=== PATIENT | male | born 1950 | race Caucasian/White ===

== ENCOUNTER 2018-11-02 08:03 | Inpatient (IN) | payer MEDICARE ==
[~2018-11-02] VITALS: Ht 177.8 cm; Wt 47.4 kg
[~2018-11-02 08:03] MED LIST: ACET325; ACET325UDC PO; ALBU3IS INH; ALBU90OI6 INH; ALPR.5 PO; AMLO5 PO; ASCO500 PO; AZIT500 PO; Acidophilus La100 GM PO; BUDE6HFA INH; CALCA500CH PO; CLON.5 PO; Docu Liqui50 MG/5 ML PO; FERR325 PO; FLUC200 PO; IBUP400 PO; IPRAIS NEB; LEVSOD100 PO; LORA1 PO; Lorazepam2 MG/1 ML IV; MELO7.5 PO; NAC600 MG PO; NYST100SU MT; OMEP20ER PO; OXYC5 PO; PRED10 PO; PRED20 PO; SACC250C PO; THIA100 PO; TIOT18 IH; TIOT18 INH; ZINC15 PO
[2018-11-02 08:22] LABS: PO2 Arterial 102 mmHg (80-100)
[2018-11-02 08:23] LABS: PCO2 Arterial > 106 mmHg (35-45)
[2018-11-02 08:35] LABS: BASOPHILS ABSOLUTE AUTO 0.02 K/mm3 (0.00-0.23); BASOPHILS PERCENT AUTO 0 % (0-2); EOSINOPHILS ABSOLUTE AUTO 0.05 K/mm3 (0.00-0.68); EOSINOPHILS PERCENT AUTO 0 % (0-6); Hematocrit 44.1 % (37.0-53.0); Hemoglobin 13.7 g/dL (13.5-17.5); IMMATURE GRAN ABSOLUTE AUTO 0.04 K/mm3 (0.00-0.10); IMMATURE GRAN PERCENT AUTO 0 % (0-1); LYMPHOCYTES ABSOLUTE AUTO 0.56 K/mm3 (0.84-5.20); LYMPHOCYTES PERCENT AUTO 5 % (21-46); MONOCYTES ABSOLUTE AUTO 1.51 K/mm3 (0.16-1.47); MONOCYTES PERCENT AUTO 12 % (4-13); Mean Corpuscular HGB 31.4 pg (26.0-34.0); Mean Corpuscular HGB Conc 31.1 g/dL (31.5-36.5); Mean Corpuscular Volume 101 fL (80-100); NEUTROPHILS ABSOLUTE AUTO 10.23 K/mm3 (1.96-9.15); NEUTROPHILS PERCENT AUTO 82 % (41-73); RDW Coefficient Variation 12.1 % (11.7-14.2); RDW Standard Deviation 45.8 fL (35.1-46.3); Red Blood Cell Count 4.36 M/mm3 (4.30-5.90); White Blood Cell Count 12.41 K/mm3 (4.00-11.30)
[2018-11-02 08:48] LABS: Alanine Aminotransfer (ALT/SGP 14 U/L (12-78); Albumin, Blood 4.1 g/dL (3.4-5.0); Albumin/Globulin Ratio 1.4 (0.8-1.8); Alk Phos 74 U/L (50-136); Aspartate Aminotrans (AST/SGOT 13 U/L (12-37); Bilirubin, Total 0.6 mg/dL (0.1-1.0); Blood Urea Nitrogen 35 mg/dL (8-24); Bun/Creatinine Ratio 70.7 (12.0-20.0); Calcium, Blood 9.9 mg/dL (8.5-10.1); Chloride, Blood 92 mmol/L (98-108); Glomerular Filtration Rate >60 (60-); Glucose, Blood 185 mg/dL (70-99); Magnesium, Blood 2.4 mg/dL (1.6-2.4); Potassium, Blood 4.3 mmol/L (3.5-5.5); Sodium, Blood 144 mmol/L (136-145); Total Protein, Blood 7.1 g/dL (6.4-8.2); Troponin I <0.015 ng/mL (0.000-0.040)
[2018-11-02 08:53] LABS: Mean Platelet Volume 10.6 fL (9.1-12.4); Platelet Count 256 K/mm3 (150-400)
[2018-11-02 09:03] LABS: International Normalized Ratio 0.99; Prothrombin Time Results 10.5 Sec (9.7-11.5)
[2018-11-02 09:25] LABS: Anion Gap Unable to Calculate mmol/L (6-16)
[2018-11-02 09:26] LABS: CO2, Blood >45 mmol/L (21-32)
[2018-11-02] MEDS ORDERED: SALS750 PO (09:26)
[2018-11-02] MEDS ORDERED: AZIT250 PO (09:26)
[2018-11-02] MEDS ORDERED: MEGASTROL PO (09:27)
[2018-11-02] MEDS ORDERED: DOCU100 PO (09:27)
[2018-11-02] MEDS ORDERED: OXYC5 PO ×2 (09:28)
[2018-11-02] MEDS ORDERED: CHOL10002 PO (09:28)
[2018-11-02] MEDS ORDERED: GAVILAX17 GM PO (09:29)
[2018-11-02 09:44] LABS: Influenza A Negative (NEGATIVE); Influenza B Negative (NEGATIVE)
[2018-11-02 10:52] LABS: Bilirubin, Urine Neg (Neg); Blood, Urine 3+ (Neg); Glucose Qualitative, Urine Neg (Neg); Ketones, Urine 1+ (Neg); Leukocyte Esterase, Urine Neg (Neg); Nitrite, Urine Neg (Neg); Protein, Urine 4+ (Neg); Urobilinogen, Urine NORM (Normal)
[2018-11-02 10:56] LABS: PCO2 Arterial 97.2 mmHg (35-45); PO2 Arterial 82.3 mmHg (80-100); pH Blood Arterial 7.33 (7.35-7.45)
[2018-11-02 11:14] LABS: Appearance, Urine Clear (Clear); Color, Urine Yellow (P-Yellow)
[2018-11-02 11:22] LABS: Bacteria Few /hpf; Squamous Epithelial Cells Rare /hpf (Few)
[2018-11-02 11:23] LABS: WBC Cast 0-2 /lpf (0)
[2018-11-02 21:09] LABS: Adenovirus Not Detected (NOT DETECT); Bordetella pertussis Not Detected (NOT DETECT); Chlamydophila pneumoniae Not Detected (NOT DETECT); Coronavirus 229E Not Detected (NOT DETECT); Coronavirus HKU1 Not Detected (NOT DETECT); Coronavirus NL63 Not Detected (NOT DETECT); Coronavirus OC43 Not Detected (NOT DETECT); Human Metapneumovirus Not Detected (NOT DETECT); Human Rhinovirus/Enterovirus Not Detected (NOT DETECT); Influenza A Not Detected (NOT DETECT); Influenza A/2009-H1 Not Detected (NOT DETECT); Influenza A/H1 Not Detected (NOT DETECT); Influenza A/H3 Not Detected (NOT DETECT); Influenza B Not Detected (NOT DETECT); Mycoplasma pneumoniae Not Detected (NOT DETECT); Parainfluenza Virus 1 Not Detected (NOT DETECT); Parainfluenza Virus 2 Not Detected (NOT DETECT); Parainfluenza Virus 3 Not Detected (NOT DETECT); Parainfluenza Virus 4 Detected (NOT DETECT); Respiratory Syncytial Virus Not Detected (NOT DETECT)
[2018-11-03 05:15] LABS: PO2 Arterial 72.4 mmHg (80-100); pH Blood Arterial 7.37 (7.35-7.45)
[2018-11-03 05:16] LABS: PCO2 Arterial 89.5 mmHg (35-45)
[2018-11-03 05:51] LABS: BASOPHILS PERCENT AUTO 0 % (0-2); EOSINOPHILS PERCENT AUTO 0 % (0-6); Hematocrit 43.5 % (37.0-53.0); Hemoglobin 13.2 g/dL (13.5-17.5); IMMATURE GRAN ABSOLUTE AUTO 0.05 K/mm3 (0.00-0.10); IMMATURE GRAN PERCENT AUTO 1 % (0-1); LYMPHOCYTES ABSOLUTE AUTO 0.21 K/mm3 (0.84-5.20); LYMPHOCYTES PERCENT AUTO 2 % (21-46); MONOCYTES ABSOLUTE AUTO 0.46 K/mm3 (0.16-1.47); MONOCYTES PERCENT AUTO 5 % (4-13); Mean Corpuscular HGB 31.6 pg (26.0-34.0); Mean Corpuscular HGB Conc 30.3 g/dL (31.5-36.5); Mean Corpuscular Volume 104 fL (80-100); Mean Platelet Volume 10.7 fL (9.1-12.4); NEUTROPHILS ABSOLUTE AUTO 8.94 K/mm3 (1.96-9.15); NEUTROPHILS PERCENT AUTO 93 % (41-73); Platelet Count 269 K/mm3 (150-400); RDW Coefficient Variation 12.2 % (11.7-14.2); RDW Standard Deviation 46.6 fL (35.1-46.3); Red Blood Cell Count 4.18 M/mm3 (4.30-5.90); White Blood Cell Count 9.66 K/mm3 (4.00-11.30)
[2018-11-03 06:15] LABS: Alanine Aminotransfer (ALT/SGP 18 U/L (12-78); Albumin, Blood 3.7 g/dL (3.4-5.0); Albumin/Globulin Ratio 1.2 (0.8-1.8); Alk Phos 62 U/L (50-136); Aspartate Aminotrans (AST/SGOT 16 U/L (12-37); Bilirubin, Total 0.7 mg/dL (0.1-1.0); Blood Urea Nitrogen 33 mg/dL (8-24); Bun/Creatinine Ratio 64.3 (12.0-20.0); Calcium, Blood 9.4 mg/dL (8.5-10.1); Chloride, Blood 96 mmol/L (98-108); Creatinine, Blood 0.51 mg/dL (0.60-1.20); Glomerular Filtration Rate >60 (60-); Glucose, Blood 134 mg/dL (70-99); Potassium, Blood 4.8 mmol/L (3.5-5.5); Sodium, Blood 146 mmol/L (136-145); Total Protein, Blood 6.7 g/dL (6.4-8.2)
[2018-11-03 06:17] LABS: Anion Gap Unable to Calculate mmol/L (6-16)
[2018-11-03 06:21] LABS: CO2, Blood >45 mmol/L (21-32)
== END 2018-11-04 11:56 | DRG 189 ==
LOC: ER 08:03 → ERHOLD 11:46 → PCU 11:46 → MEDS 11-04 00:35 → ENPENDDIS 11-04 21:54
PROVIDERS: Emergency Medicine; Internal Medicine Critical Care Medicine; ADMIT Internal Medicine
PROC: 5A09457 Assistance with Respiratory Ventilation, 24-96 Consecutive Hours, Continuous Positive Airway Pressure (ICD-10-PCS; principal; 2018-11-02)
DX: J96.22 Acute and chronic respiratory failure with hypercapnia (principal); J44.1 Chronic obstructive pulmonary disease with (acute) exacerbation; E44.0 Moderate protein-calorie malnutrition; R64 Cachexia; Z68.1 Body mass index [BMI] 19.9 or less, adult; I10 Essential (primary) hypertension; E03.9 Hypothyroidism, unspecified; Z51.5 Encounter for palliative care; Z87.891 Personal history of nicotine dependence; Z99.81 Dependence on supplemental oxygen; K21.9 Gastro-esophageal reflux disease without esophagitis; G62.9 Polyneuropathy, unspecified
CPT/HCPCS: 36415; 36600; 71045; 80053; 81001; 82803; 83605; 83735; 83880; 84484; 85025; 85610; 87040; 87081; 87486; 87581; 87633; 87798; 87804; 93005; 93010; 94640; 94660; 94762; 96361; 96374; 96375; 99285-25; C9113; J1650; J2060; J2930; J3010; J7030